=== PATIENT | male | born 1945 | race Caucasian/White ===

== ENCOUNTER → 2019-04-23 | Outpatient (CLI) | payer OTHER ==
--- NOTE | 2019-04-23 11:03 | 2DMMODE ---
[facility] [place] [address] 2 D/M-MODE ECHOCARDIOGRAM Name: ANN AMATO Room #: REG [facility]#: [id number] Admission: 04/23/19 Attend Phys: Aurelio Ibanez MD Discharge: Date of : 49 Date of Service: 04/23/19 1103 Report #: [id number] THIS REPORT FOR: //name// APPROVED REPORT Study performed: 04/23/2019 08:46:47 EXAM: Comprehensive 2D, Doppler, and color-flow Echocardiogram Patient Location: Out-Patient Room #: Echo lab 2 BSA: 2.26 HR: 60 bpm BP: 130/72 mmHg Rhythm: NSR Other Information Study Quality: Adequate Indications Aortic Valve Disease Cardiomyopathy 2D Dimensions IVSd: 19.06 (7-11mm) LVOT Diam: 20.11 (18-24mm) LVDd: 43.27 mm PWd: 14.72 (7-11mm) Ascending Ao: 37.30 (22-36mm) LVDs: 32.19 (25-40mm) Aortic Root: 38.99 mm IVC: 14.00 mm Volumes Left Atrial Volume (Systole) Single Plane 4CH: 87.63 mL Single Plane 2CH: 68.98 mL LA ESV Index: 41.00 mL/m2 Aortic Valve AoV Peak Juan Manuel.: 2.71 m/s AO Peak Gr.: 29.42 mmHg LVOT Max P.82 mmHg AO Mean Gr.: 18.96 mmHg LVOT Mean P.84 mmHg AO V2 Mean: 2.10 m/s LVOT Max V: 0.98 m/s AO V2 VTI: 71.75 cm LVOT Mean V: 0.64 m/s DAVID (VTI): 1.01 cm2 LVOT V1 VTI: 22.72 cm DAVID Vmax: 1.14 cm2 SV (LVOT): 72.13 mL [facility] [place] [address] 2 D/M-MODE ECHOCARDIOGRAM Name: ANN AMATO Room #: REG [facility]#: [id number] Admission: 04/23/19 Attend Phys: Aurelio Ibanez MD Discharge: Date of : 49 Date of Service: 04/23/19 1103 Report #: [id number] Mitral Valve E/A Ratio: 0.7 MV Decel. Time: 382.42 ms MV E Max Juan Manuel.: 0.65 m/s MV A Juan Manuel.: 0.95 m/s MV PHT: 110.90 ms IVRT: 41.52 ms Pulmonary Valve PV Peak Juan Manuel.: 0.79 m/s PV Peak Gr.: 2.52 mmHg Pulmonary Vein P Vein S: 0.50 m/s P Vein A: 0.27 m/s P Vein D: 0.29 m/s P Vein A Dur.: 64.6 msec P Vein S/D Ratio: 1.72 Tricuspid Valve TR Peak Juan Manuel.: 2.58 m/s TR Peak Gr.: 26.59 mmHg PA Pressure: 32.00 mmHg Left Ventricle The left ventricle is normal size. There is normal LV segmental wall motion. Moderate concentric left ventricular hypertrophy. The left ventricular systolic function is normal. The left ventricular ejection fraction is within the normal range. LVEF is 55-60%. Grade I - abnormal relaxation pattern. Right Ventricle The right ventricle is normal size. The right ventricular systolic function is normal. Atria Left atrium is dilated. The right atrium size is normal. Aortic Valve The aortic valve is normal in structure. Aortic valve is calcified. No aortic regurgitation is present. Moderate aortic stenosis. Mitral Valve The mitral valve is normal in structure. Trace mitral regurgitation. No evidence of mitral valve stenosis. Tricuspid Valve The tricuspid valve is normal in structure. There is trace tricuspid regurgitation. Estimated PAP 34 mmHg. There is mild pulmonary [address] [address] 2 D/M-MODE ECHOCARDIOGRAM Name: ANN AMATO Room #: REG [facility]#: [id number] Admission: 04/23/19 Attend Phys: Aurelio Ibanez MD Discharge: Date of : 49 Date of Service: 04/23/19 1103 Report #: [id number] hypertension. Pulmonic Valve The pulmonary valve is normal in structure. There is no pulmonic valvular regurgitation. Great Vessels The aortic root is normal in size. IVC is normal in size and collapses >50% with inspiration. Pericardium There is no pericardial effusion. <Conclusion> The left ventricle is normal size. LVEF is 55-60%. Left atrium is dilated. The aortic valve is normal in structure. Aortic valve is calcified. No aortic regurgitation is present. Moderate aortic stenosis. The mitral valve is normal in structure. Trace mitral regurgitation. The tricuspid valve is normal in structure. There is trace tricuspid regurgitation. Estimated PAP 34 mmHg. There is mild pulmonary hypertension. The pulmonary valve is normal in structure. There is no pericardial effusion. <ELECTRONICALLY SIGNED> By: Mynor Reese MD 04/23/19 1103 1103 1103 Mynor Reese MD /INF
== END ==
LOC: EDBD → CV 07:59
DX: I06.9 Rheumatic aortic valve disease, unspecified (principal); I25.9 Chronic ischemic heart disease, unspecified